=== PATIENT | male | born 1950 | race Caucasian/White ===

== ENCOUNTER → 2017-12-22 | Outpatient (CLI) | payer OTHER, MEDICARE | LOC: BMCIMAGING 10:54 | PROVIDERS: ATTEND Family Medicine | DX: M17.0 Bilateral primary osteoarthritis of knee (principal); Z86.718 Personal history of other venous thrombosis and embolism ==

== ENCOUNTER 2019-03-10 23:20 | Inpatient (IN) | payer OTHER, MEDICARE ==
--- NOTE | 2019-03-10 23:41 | EDPHY ---
H & P Stated Complaint: left leg swelling and redness with fever Time Seen by Provider: 03/10/19 23:41 HPI/ROS: HPI CHIEF COMPLAINT: Left lower extremity redness and swelling and pain. HISTORY OF PRESENT ILLNESS: Patient presents emergency room stating for the past 2-3 days he has been in bed fatigue, complaining of muscle aches and fever. He states T-max at home of 102. He has had pain in his bilateral legs and arms. He presents emergency room tonight after he took off his pant leg today and noticed that his left leg was erythematous, swollen and painful. Past Medical History: Significant medical history for diabetes, morbid obesity , hypertension, DVT, obstructive sleep apnea, left leg venous insufficiency,MAKENNA Past Surgical History: No recent surgery Social History: Denies drugs alcohol tobacco. Lives independently by himself. Family History: Noncontributory ROS REVIEW OF SYSTEMS: 10 Systems were reviewed and negative with the exception of the elements mentioned in the history of present illness. Exam Constitutional triage nursing summary reviewed, vital signs reviewed, awake/ alert. Eyes normal conjunctivae and sclera, EOMI, PERRLA. HENT normal inspection, atraumatic, moist mucus membranes, no epistaxis, neck supple/ no meningismus, no raccoon eyes. Respiratory clear to auscultation bilaterally, normal breath sounds, no respiratory distress, no wheezing. Cardiovascular rate normal, regular rhythm, no murmur, no edema, distal pulses normal. Gastrointestinal soft, non-tender, no rebound, no guarding, normal bowel sounds, no distension, no pulsatile mass. Genitourinary no CVA tenderness. Musculoskeletal left lower extremity: Good distal pulse, good cap refill, the left lower extremity is edematous, there significant warmth and redness to the left anterior tibia and left calf. No compartment syndrome. Concerning for cellulitis. Venous insufficiency changes. no midline vertebral tenderness, full range of motion, no calf swelling, no tenderness of extremities, no meningismus, good pulses, neurovascularly intact. Skin pink, warm, & dry, no rash, skin atraumatic. Neurologic awake, alert and oriented x 3, AAOx3, moves all 4 extremities equally, motor intact, sensory intact, CN II-XII intact, normal cerebellar, normal vision, normal speech. Psychiatric normal mood/affect. Heme/Lymph/Immune no lymphadenopathy. Differential Diagnosis: Includes but is not limited to in a particular order venous insufficiency, DVT, cellulitis, bacteremia, MRSA, strep Medical Decision Making: Plan for this patient IV establishment blood cultures , inflammatory markers, lactic acid, IV fluids, IV vanc IV Zosyn, ultrasound Doppler left lower extremity and admit to the hospital. Re-evaluation: Ultrasound of the left lower extremity no evidence of DVT in the left lower extremity. Faxed me by direct Radiology 12:30 a.m.. Plan for admission for LLE cellulitis. No DVT Vanco/zosyn ordered. IV fluids Dr. Bedoya agrees to admit. updated patient agrees for admission admit for LLE cellulitis Patient updated, LLE Cellulitis, no DVT Source: Patient - Personal History Current Tetanus/Diphtheria Vaccine: Yes Current Tetanus Diphtheria and Acellular Pertussis (TDAP): Yes Tetanus Vaccine Date: 5 years ago - Medical/Surgical History Hx Asthma: No Hx Chronic Respiratory Disease: No Hx Diabetes: Yes Hx Cardiac Disease: No Hx Renal Disease: No Hx Cirrhosis: No Hx Alcoholism: No Hx HIV/AIDS: No Hx Splenectomy or Spleen Trauma: No Other PMH: MENIERS AND TINNITIS LEFT EAR, HX SKIN RASH, NOS. LLE BLOOD CLOTS 1998. HTN, DM, hyperlipidemia - Social History Smoking Status: Former smoker Constitutional: Initial Vital Signs Temperature (C) 37.0 C 03/10/19 23:21 Heart Rate 100 03/10/19 23:21 Respiratory Rate 18 03/10/19 23:21 Blood Pressure 174/110 H 03/10/19 23:21 O2 Sat (%) 94 03/10/19 23:21 O2 Delivery Mode Room Air Allergies/Adverse Reactions: latex [Latex] Allergy (Verified 03/10/19 23:28) Rash Home Medications: Medication Instructions Recorded Ascorbic Acid [Vitamin C 500 mg 500 mg PO DAILY 03/11/19 (*)] Cholecalciferol Vit D3 [Vitamin D3 1,000 units PO DAILY 03/11/19 (*)] Colestipol HCl [Colestid (*)] 2 gm PO TID 03/11/19 Dapagliflozin Propanediol [Farxiga] 10 mg PO DAILY 03/11/19 Diazepam [Valium 5 MG (*)] 5 mg PO DAILY PRN 03/11/19 Linagliptin [Tradjenta] 5 mg PO DAILY 03/11/19 Losartan/Hydrochlorothiazide 1 each PO DAILY 03/11/19 [Losartan-Hctz 100-25 mg Tab] Metoprolol Tartrate [Lopressor 100 100 mg PO BID 03/11/19 mg (*)] Multivitamins [Multivitamin (*)] 1 each PO DAILY 03/11/19 Sildenafil Citrate [Revatio 20 MG 20 mg PO DAILY PRN 03/11/19 (*)] Simvastatin [Zocor] 20 mg PO DAILY 03/11/19 Tamsulosin HCl [Flomax 0.4 MG (*)] 0.4 mg PO DAILY 03/11/19 amLODIPine BESYLATE [Norvasc 5 mg 5 mg PO DAILY 03/11/19 (*)] glipiZIDE [Glipizide] 5 mg PO BID 03/11/19 metFORMIN HCL [Glucophage 1000 mg] 1,000 mg PO BIDMEAL 03/11/19 Acetaminophen [Tylenol 325mg (*)] 650 mg PO Q4HRS PRN tab 03/12/19 Ascorbic Acid [Vitamin C 500 mg 1,000 mg PO DAILY 03/12/19 (*)] Cholecalciferol Vit D3 [Vitamin D3 5,000 units PO DAILY 03/12/19 (*)] Cyanocobalamin [Vitamin B12 (*)] 500 mcg PO DAILY 03/12/19 Dicloxacillin Sodium 500 mg PO QIDMEAL #40 capsule 03/12/19 Herbals/Supplements -Info Only 1 ea PO DAILY 03/12/19 Multivitamins [Multivitamin (*)] 1 each PO DAILY 03/12/19 [place]-3 Fatty Acids [Fish Oil 1000 2,000 mg PO BID 03/12/19 mg (*)] Ranitidine HCl [Zantac] 150 mg PO BID 03/12/19 Medical Decision Making - Data Points Laboratory Results: Laboratory Results 03/10/19 00:02 03/10/19 00:02 Medications Given: Discontinued Medications Amlodipine Besylate (Norvasc) 5 mg PO DAILY LAURA Stop: 09/08/19 08:59 Last Admin: 03/12/19 09:18 Dose: 5 mg Ascorbic Acid (Vitamin C) 500 mg PO DAILY LAURA Stop: 09/08/19 08:59 Last Admin: 03/12/19 09:18 Dose: 500 mg Atorvastatin Calcium (Lipitor) 10 mg PO DAILY LAURA Stop: 10/30/19 08:59 Last Admin: 03/12/19 09:18 Dose: 10 mg Cholecalciferol (Vitamin D) 1,000 units PO DAILY LAURA Stop: 09/08/19 08:59 Last Admin: 03/12/19 09:18 Dose: 1,000 units Colestipol HCl (Colestid) 2 gm PO TID LAURA Stop: 09/07/19 15:59 Last Admin: 03/12/19 09:15 Dose: 2 gm Enoxaparin Sodium (Lovenox) 40 mg SC DAILY LA[facility]A Stop: 09/07/19 08:59 Last Admin: 03/12/19 09:18 Dose: 40 mg Glipizide (Glucotrol) 5 mg PO BID LAURA Stop: 09/07/19 20:59 Last Admin: 03/11/19 21:00 Dose: 5 mg Glipizide (Glucotrol) 5 mg PO BIDAC LA[facility]A Stop: 09/08/19 07:59 Last Admin: 03/12/19 11:08 Dose: 5 mg Hydrochlorothiazide (Hydrochlorothiazide) 25 mg PO DAILY LAURA Stop: 09/08/19 08:59 Last Admin: 03/12/19 09:16 Dose: 25 mg Sodium Chloride (Ns) 1,000 mls @ 0 mls/hr IV EDNOW ONE; Wide Open PRN Reason: Protocol Stop: 03/10/19 23:48 Last Admin: 03/11/19 00:10 Dose: 1,000 mls Piperacillin/Tazobactam/Dextrose (Zosyn (Premix)) 100 mls @ 200 mls/hr IV EDNOW ONE PRN Reason: Protocol Stop: 03/11/19 00:17 Last Admin: 03/11/19 00:32 Dose: 100 mls Vancomycin HCl 1.5 gm/ Sodium (Chloride) 250 mls @ 166.67 mls/hr IV EDNOW ONE PRN Reason: Protocol Stop: 03/11/19 01:59 Last Admin: 03/11/19 01:02 Dose: 250 mls Sodium Chloride (Ns) 1,000 mls @ 100 mls/hr IV CONT [facility] Stop: 09/07/19 01:44 Last Admin: 03/12/19 03:55 Dose: 1,000 mls Piperacillin/Tazobactam/Dextrose (Zosyn 3.375 Gm (Premix)) 50 mls @ 100 mls/hr IV Q6HRS [facility] PRN Reason: Protocol Stop: 04/10/19 05:59 Last Admin: 03/11/19 13:01 Dose: 50 mls Vancomycin HCl 1.25 gm/ Sodium (Chloride) 250 mls @ 166.667 mls/hr IV Q12H [facility] Stop: 04/10/19 13:29 Last Admin: 03/12/19 16:55 Dose: Not Given Piperacillin/Tazobactam/Dextrose (Zosyn (Premix)) 100 mls @ 200 mls/hr IV Q6 [facility] Stop: 04/10/19 17:59 Last Admin: 03/12/19 12:46 Dose: 100 mls Losartan Potassium (Cozaar) 100 mg PO DAILY [facility] Stop: 09/08/19 12:44 Last Admin: 03/12/19 14:01 Dose: Not Given Metformin HCl (Glucophage) 1,000 mg PO BIDMEAL [facility] Stop: 09/07/19 17:59 Last Admin: 03/12/19 09:16 Dose: 1,000 mg Metoprolol Tartrate (Lopressor) 100 mg PO BID [facility] Stop: 09/07/19 20:59 Last Admin: 03/12/19 09:18 Dose: 100 mg Miscellaneous Medication (Dapagliflozin Propanediol [Farxiga]) 10 mg PO DAILY [facility] Stop: 09/08/19 08:59 Last Admin: 03/12/19 10:11 Dose: Not Given Miscellaneous Medication (Linagliptin [Tradjenta]) 5 mg PO DAILY [facility] Stop: 09/08/19 08:59 Last Admin: 03/12/19 10:11 Dose: Not Given Multivitamins (Tab-A-Per) 1 each PO DAILY [facility] Stop: 09/08/19 08:59 Last Admin: 03/12/19 09:18 Dose: 1 each Tamsulosin HCl (Flomax) 0.4 mg PO DAILY [facility] Stop: 09/08/19 08:59 Last Admin: 03/12/19 09:18 Dose: 0.4 mg Departure - Departure Disposition: [facility] Inpatient Acute Clinical Impression: Left leg cellulitis Condition: Good
[2019-03-10] MEDS ORDERED: NS 1,000 ML IV ONE (23:47)
[2019-03-10] MEDS ORDERED: PIPERACILLIN/TAZO 4.5 GM/DEX 100 ML IV ONE (23:48)
[2019-03-10] MEDS ORDERED: VANCOMYCIN 1.5 GM in D5W 250 ML IV ONE (23:48)
[2019-03-11] MEDS ORDERED: VANCOMYCIN 1.5 GM in NS 250 ML IV ONE (00:30)
[2019-03-11 00:37] LABS: PLATELET COUNT 113 10^3/uL (150-400)
[2019-03-11 00:39] LABS: INR 1.2 (0.83-1.16); PROTIME(PATIENT) 14.7 SEC (12.0-15.0)
[2019-03-11] MEDS ORDERED: HYDROCODONE/APAP 5/325 TAB PO PRN (01:31)
[2019-03-11] MEDS ORDERED: ACETAMINOPHEN 325 MG TAB PO PRN (01:31)
[2019-03-11] MEDS ORDERED: ONDANSETRON DISINTEGRATING 4 MG TAB PO PRN (01:31)
[2019-03-11] MEDS ORDERED: ONDANSETRON 4 MG/2 ML VIAL IVP PRN (01:31)
[2019-03-11] MEDS: PIPERACILLIN/TAZO 3.375 GM/DEX 50 ML IV SCH ×2 (06:18→13:01)
[2019-03-11 07:55] LABS: PLATELET COUNT 98 10^3/uL (150-400)
[2019-03-11] MEDS: NS 1,000 ML IV SCH (12:22)
[2019-03-11] MEDS ORDERED: DIAZEPAM 5 MG TAB PO PRN (12:31)
[2019-03-11] MEDS ORDERED: SILDENAFIL CITRATE 20 MG TAB PO PRN (12:31)
[2019-03-11] MEDS ORDERED: IBUPROFEN 200 MG TAB PO PRN (12:45)
[2019-03-11] MEDS: ENOXAPARIN 40 MG/0.4 ML SYR SC SCH (13:01)
[2019-03-11] MEDS: VANCOMYCIN 1.25 GM in NS 250 ML IV SCH (13:36)
[2019-03-11] MEDS: COLESTIPOL HCL 1 GM TAB PO SCH ×2 (15:27→21:01)
--- NOTE | 2019-03-11 16:05 | GHP ---
[f rep st] HISTORY AND PHYSICAL DATE OF ADMISSION: 03/11/2019 CHIEF COMPLAINT: Left leg swelling and redness. HISTORY OF PRESENT ILLNESS: The patient is a 68-year-old male, who presented to the emergency room t lauren with complaints of left lower extremity redness with swelling. He states over the past 2 to 3 d ays, he has had muscle aches and fever. He has been helping his father move a fair amount of furnitu re over the last several days and feels generally sore secondary to this. He states that he noticed that, when he took his pants off last evening to go to bed, his left lower extremity had increased sw elling with erythema, at which time he decided to present to the emergency room. He does note that jose grant has had a temperature of 102 at home and has generally not been feeling well. He denies any shortn ess of breath, chest pain, or dyspnea. He denies any nausea, vomiting, or diarrhea. He states that he has had achy arms and legs, as well as a fever and overall general malaise. REVIEW OF SYSTEMS: A comprehensive 10-point review of systems is negative other than noted in the HP I. PAST MEDICAL HISTORY: Diabetes mellitus type 2, morbid obesity, hypertension, history of DVT in 1998 in the left lower extremity, obstructive sleep apnea, left leg venous insufficiency, Meniere disease , PAST SURGICAL HISTORY: None per the patient's report. SOCIAL HISTORY: The patient denies any alcohol or tobacco. He lives independently. FAMILY HISTORY: Coronary artery disease. PHYSICAL EXAMINATION: GENERAL: Physically, the patient is alert, oriented, and in no acute distress . VITAL SIGNS: Afebrile at 36.4, pulse 92, respiratory rate 18, blood pressure 138/85, and he is sa turating 95% on room air. HEENT: Normocephalic, atraumatic. Mucosal membranes are moist. Pupils a re equal, round, and reactive to light. RESPIRATORY: Lungs are clear to auscultation bilaterally. No rhonchi or wheezes appreciated. CARDIOVASCULAR: Regular rate and rhythm. No gallop or murmur no magdalena. GASTROINTESTINAL/ABDOMEN: Bowel sounds are positive. Soft and nontender. There is no guardin g or rigidity appreciated. EXTREMITIES: The left lower extremity has a good distal pulse with good capillary refill. There is noted edema, as well as erythema. No signs of compartment syndrome, with noticed scarring and venous insufficiency. The right lower extremity has mild erythema. SKIN: War m, pink, and erythematous on the left lower extremity. NEUROLOGIC: Examination is focally intact. HOME MEDICATIONS: Please refer to extensive home medication list. ALLERGIES: Latex. LABORATORY EVALUATION: Hemoglobin 13.6 with a hematocrit of 38.8, and platelets are 98. ESR is 42. INR is 1.2. BUN of 26 with a C-reactive protein of 144.9. RADIOLOGICAL STUDIES: Ultrasound: No evidence of deep vein thrombosis. ASSESSMENT/PLAN: The patient is a 68-year-old male admitted to the hospital secondary to: 1. Left lower extremity cellulitis. He has been initiated on Zosyn, as well as vancomycin in the em ergency room. We will continue this at this time. I have also instructed the patient to elevate his leg significantly. We will continue to monitor him during this hospitalization. Blood cultures are pending during this dictation. 2. History of diabetes mellitus type 2. He has been placed on a diabetic diet. I reinitiated his h ome medications. His blood sugar is stable. 3. History of left lower extremity deep vein thrombosis. Ultrasound has been performed. There is n o evidence of deep vein thrombosis at this time. 4. History of obstructive sleep apnea. I will order the patient a continuous positive airway pressu re for nocturnal use as he is unable to obtain his from home. 5. Hypertension. Blood pressure is stable during this dictation. His home medications have been re initiated. CODE STATUS: The patient is a full code. DISPOSITION: The patient has been admitted for inpatient care as he requires extensive IV antibiotic therapy. Ability to discharge him from the hospital is unknown at this time and will be dependent o n his improvement on a daily basis. /[id number]/MODL
[2019-03-11] MEDS: metFORMIN HCL 500 MG TAB PO SCH (17:41)
[2019-03-11] MEDS: PIPERACILLIN/TAZO 4.5 GM/DEX 100 ML IV SCH ×2 (17:41→23:49)
--- NOTE | 2019-03-11 20:03 | PDMN ---
Medical Necessity Medical necessity: Pt meets IP criteria per MD & MCG M-70; est los >2 mn for eval/tx of LLE cellulitis w/muscle aches & fever; cxs pending; admit for further monitoring & IV abx; hx diabetes, LLE DVT; per H&P & order 03/11/19
[2019-03-11] MEDS: METOPROLOL TARTRATE 100 MG TAB PO SCH (20:59)
[2019-03-11] MEDS ORDERED: glipiZIDE 5 MG TAB PO SCH (21:00)
[2019-03-12] MEDS: VANCOMYCIN 1.25 GM in NS 250 ML IV SCH ×2 (01:04→16:55)
[2019-03-12] MEDS: NS 1,000 ML IV SCH (03:55)
[2019-03-12] MEDS: PIPERACILLIN/TAZO 4.5 GM/DEX 100 ML IV SCH ×2 (05:24→12:46)
[2019-03-12] MEDS ORDERED: glipiZIDE 5 MG TAB PO SCH (08:00)
[2019-03-12] MEDS ORDERED: MULTIVITAMINS 1 EACH TAB PO SCH (09:00)
[2019-03-12] MEDS ORDERED: CHOLECALCIFEROL VIT D3 1,000 UNITS TAB PO SCH (09:00)
[2019-03-12] MEDS ORDERED: TAMSULOSIN HCL 0.4 MG CAP PO SCH (09:00)
[2019-03-12] MEDS ORDERED: amLODIPine BESYLATE 5 MG TAB PO SCH (09:00)
[2019-03-12] MEDS ORDERED: HYDROCHLOROTHIAZIDE 25 MG TAB PO SCH (09:00)
[2019-03-12] MEDS ORDERED: ATORVASTATIN CALCIUM 10 MG TAB PO SCH (09:00)
[2019-03-12] MEDS ORDERED: Dapagliflozin Propanediol [Farxiga] 10 MG PO SCH (09:00)
[2019-03-12] MEDS ORDERED: ASCORBIC ACID 500 MG TAB PO SCH (09:00)
[2019-03-12] MEDS: COLESTIPOL HCL 1 GM TAB PO SCH (09:15)
[2019-03-12] MEDS: metFORMIN HCL 500 MG TAB PO SCH (09:16)
[2019-03-12] MEDS: METOPROLOL TARTRATE 100 MG TAB PO SCH (09:18)
[2019-03-12] MEDS: ENOXAPARIN 40 MG/0.4 ML SYR SC SCH (09:18)
--- NOTE | 2019-03-12 10:46 | HOSPPROG ---
Hospitalist Progress Note Objective: Vital Signs Temp Pulse Resp BP Pulse Ox 98.3 F 77 16 144/82 H 94 03/12/19 08:00 03/12/19 09:18 03/12/19 08:00 03/12/19 09:18 03/12/19 08:00 Laboratory Results 03/11/19 06:00 03/11/19 06:00 03/10/19 03/11/19 03/12/19 11:59 11:59 11:59 Intake Total 1000 1950 Balance 1000 1950 PT 14.7 SEC (12.0-15.0) 03/10/19 00:02 INR 1.20 (0.83-1.16) H 03/10/19 00:02 ICD10 Worksheet Patient Problems: Problems Problem Status Onset Left leg cellulitis Acute
[2019-03-12 12:35] VITALS: BP 120/63
[2019-03-12] MEDS ORDERED: LOSARTAN POTASSIUM 50 MG TAB PO SCH (12:45)
--- NOTE | 2019-03-12 14:09 | ASMTCMCOM ---
CM Note CM Note Notes: Met with pt in his room to discuss discharge today. He is independent and states that he doesn't need any help with anything once he returns home. CM D/C plan: Discharge independent to home today. Date Signed: 03/12/2019 02:05 PM Electronically Signed By:Margaret Lund
== END 2019-03-12 17:21 | disposition home or self-care (01) | DRG 603 ==
LOC: OBSVTOIN 03-11 01:36 → F3N 03-11 11:52
PROVIDERS: ADMIT Internal Medicine; ATTEND Family Medicine
DX: L03.116 Cellulitis of left lower limb (principal); E86.9 Volume depletion, unspecified; E11.9 Type 2 diabetes mellitus without complications; E66.01 Morbid (severe) obesity due to excess calories; I10 Essential (primary) hypertension; G47.33 Obstructive sleep apnea (adult) (pediatric); Z86.718 Personal history of other venous thrombosis and embolism; Z87.891 Personal history of nicotine dependence; Z79.84 Long term (current) use of oral hypoglycemic drugs
CPT/HCPCS: 96365; J1650; J2543; J3370